=== PATIENT | female | born 1985 | race Hispanic/Latino ===

== ENCOUNTER 2020-09-10 00:45 | Emergency (ER) | payer MEDICAID, SELFPAY ==
--- OUTSIDE RECORDS SUMMARY | 2020-09-10 00:48 | XMS REPORT | Continuity of Care Document ---
:1985 Author Organization [facility] t Address [address] [place] [address] [address] [place] [address] Care Team Providers Name Role Phone Unavailable Unavailable Unavailable Problems This patient has no known problems. Allergies, Adverse Reactions, Alerts This patient has no known allergies or adverse reactions. Medications This patient has no known medications. Procedures This patient has no known procedures. Results This patient has no known results.
--- NOTE | 2020-09-10 02:29 | EDPHYS ---
Physician Documentation [facility] Name: Lory Oreilly Age: 35 yrs Sex: Female : 1985 Arrival Date: 09/10/2020 Time: 00:47 Bed 15 Private MD: ED Physician Alden Carranza HPI: 09/10 01:29 This 35 yrs old Female presents to ER via Ambulatory with complaints of mh7 Foreign Body In Throat. 01:29 The patient or guardian reports the patient has a suspected foreign body, of the throat.mh7 01:29 The reported likely foreign body is unknown. Onset: The symptoms/episode began/occurred mh7 today. Current symptoms: foreign body sensation. Treatment Prior to Arrival: none. States that she ate pizza and felt like something got stuck in her throat. She has been able to eat and swallow since then. Denies any other symptoms.. 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 - Social history:: Smoking status: Patient denies any tobacco usage or history of. ROS: 01:29 Constitutional: Negative for fever, chills, and weight loss, Eyes: Negative for injury, mh7 pain, redness, and discharge, Neck: Negative for injury, pain, and swelling, Cardiovascular: Negative for chest pain, palpitations, and edema, Respiratory: Negative for shortness of breath, cough, wheezing, and pleuritic chest pain, Abdomen/GI: Negative for abdominal pain, nausea, vomiting, diarrhea, and constipation, Back: Negative for injury and pain, : Negative for injury, bleeding, discharge, and swelling, MS/Extremity: Negative for injury and deformity, Skin: Negative for injury, rash, and discoloration, Neuro: Negative for headache, weakness, numbness, tingling, and seizure, Psych: Negative for depression, anxiety, suicide ideation, homicidal ideation, and hallucinations, Allergy/Immunology: Negative for hives, rash, and allergies, Endocrine: Negative for neck swelling, polydipsia, polyuria, polyphagia, and marked weight changes, Hematologic/Lymphatic: Negative for swollen nodes, abnormal bleeding, and unusual bruising. Exam: 01:29 Constitutional: This is a well developed, well nourished patient who is awake, alert, mh7 and in no acute distress. Head/Face: Normocephalic, atraumatic. Eyes: Pupils equal round and reactive to light, extra-ocular motions intact. Lids and lashes normal. Conjunctiva and sclera are non-icteric and not injected. Cornea within normal limits. Periorbital areas with no swelling, redness, or edema. 01:29 Neck: Trachea midline, no thyromegaly or masses palpated, and no cervical lymphadenopathy. Supple, full range of motion without nuchal rigidity, or vertebral point tenderness. No Meningismus. Chest/axilla: Normal chest wall appearance and motion. Nontender with no deformity. No lesions are appreciated. Cardiovascular: Regular rate and rhythm with a normal S1 and S2. No gallops, murmurs, or rubs. Normal PMI, no JVD. No pulse deficits. Respiratory: Lungs have equal breath sounds bilaterally, clear to auscultation and percussion. No rales, rhonchi or wheezes noted. No increased work of breathing, no retractions or nasal flaring. Abdomen/GI: Soft, non-tender, with normal bowel sounds. No distension or tympany. No guarding or rebound. No evidence of tenderness throughout. Back: No spinal tenderness. No costovertebral tenderness. Full range of motion. Skin: Warm, dry with normal turgor. Normal color with no rashes, no lesions, and no evidence of cellulitis. MS/ Extremity: Pulses equal, no cyanosis. Neurovascular intact. Full, normal range of motion. Neuro: Awake and alert, GCS 15, oriented to person, place, time, and situation. Cranial nerves II-XII grossly intact. Motor strength 5/5 in all extremities. Sensory grossly intact. Cerebellar exam normal. Normal gait. Psych: Awake, alert, with orientation to person, place and time. Behavior, mood, and affect are within normal limits. 01:29 ENT: Posterior pharynx: is normal, airway is patent, Dental exam: normal, Voice: is normal. Vital Signs: 01:17 BP 148 / 96; Pulse 80; Resp 16; Pulse Ox 95% on R/A; Weight 122.02 kg; Height 5 ft. 1 iw in. (154.94 cm); Pain 5/10; 02:44 BP 134 / 85; Pulse 78; Resp 16; Pulse Ox 100% on R/A; jm8 01:17 Body Mass Index 50.83 (122.02 kg, 154.94 cm) iw MDM: 02:27 Data reviewed: vital signs, nurses notes, radiologic studies, plain films. Data [facility] interpreted: Pulse oximetry: on room air is 95 %. Interpretation: normal. Counseling: I had a detailed discussion with the patient and/or guardian regarding: the historical points, exam findings, and any diagnostic results supporting the discharge/admit diagnosis, the presence of at least one elevated blood pressure reading (>120/80) during this emergency department visit, radiology results, the need for outpatient follow up, to return to the emergency department if symptoms worsen or persist or if there are any questions or concerns that arise at home. Response to treatment: the patient's symptoms have markedly improved after treatment. 02:[address] [facility] 09/10 01:25 Order name: Neck Soft Tissue XRAY [facility] Administered Medications: No medications were administered Disposition: 09/10/20 02:29 Discharged to Home. Impression: Foreign Body Sensation, Throat. - Condition is Stable. - Discharge Instructions: Swallowed Foreign Body, Adult, [id number]. - Medication Reconciliation Form, Thank You Letter, Antibiotic Education, Prescription Opioid Use form. - Follow up: Private Physician; When: 1 - 2 days; Reason: Worsening of condition, Recheck today's complaints, Continuance of care, Re-evaluation by your physician. - Problem is new. - Symptoms have improved. Signatures: Dispatcher [employer] EDMS Aga Morales RN RN iw Holmes, Maurice, MD MD mh7 Alberto Saha RN RN jm8 Corrections: (The following items were deleted from the chart) 02:45 02:29 09/10/2020 02:29 Discharged to Home. Impression: Foreign Body Sensation, Throat. jm8 Condition is Stable. Forms are Medication Reconciliation Form, Thank You Letter, Antibiotic Education, Prescription Opioid Use. Follow up: Private Physician; When: 1 - 2 days; Reason: Worsening of condition, Recheck today's complaints, Continuance of care, Re-evaluation by your physician. Problem is new. Symptoms have improved. mh7
--- NOTE | 2020-09-10 02:29 | ER ---
Nurse's Notes [facility] Name: Lory Oreilly Age: 35 yrs Sex: Female : 1985 Arrival Date: 09/10/2020 Time: 00:47 Bed 15 Private MD: Diagnosis: Foreign Body Sensation, Throat Presentation: 09/10 01:17 Chief complaint: Patient states: was eating pizza 2 hours ago, felt like something iw sharp is stuck in her throat, feels like a piece of plastic, no vomiting or diff breathing, ate some bread and drank a couple sodas to try to get it down. Coronavirus screen: At this time, the client does not indicate any symptoms associated with coronavirus-19. Ebola Screen: Patient negative for fever greater than or equal to 101.5 degrees Fahrenheit, and additional compatible Ebola Virus Disease symptoms Patient denies exposure to infectious person. Patient denies travel to an Ebola-affected area in the 21 days before illness onset. No symptoms or risks identified at this time. Initial Sepsis Screen: Does the patient meet any 2 criteria? No. Patient's initial sepsis screen is negative. Does the patient have a suspected source of infection? No. Patient's initial sepsis screen is negative. Risk Assessment: Do you want to hurt yourself or someone else? Patient reports no desire to harm self or others. Onset of symptoms was September 10, 2020. 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 - Social history:: Smoking status: Patient denies any tobacco usage or history of. Screenin:23 Abuse screen: Denies threats or abuse. Denies injuries from another. Nutritional jm8 screening: No deficits noted. Tuberculosis screening: No symptoms or risk factors identified. Fall Risk None identified. Assessment: 01:29 General: Appears in no apparent distress. Behavior is calm, cooperative, appropriate jm8 for age, Denies fever, feeling ill, fatigue, chills. Pain: Complains of pain in neck Pain currently is 5 out of 10 on a pain scale. Pain began 2 hours ago. Aggravated by eating a piece of pizza Also complains of no other associated symptoms. Neuro: No deficits noted. Neuro: Level of Consciousness is awake, alert, obeys commands, Oriented to person, place, time. Cardiovascular: No deficits noted. Respiratory: No deficits noted. Respiratory: Airway is patent Respiratory effort is even, unlabored. GI: No deficits noted. : No deficits noted. EENT: Reports difficulty swallowing since 2300 last night and that she feels like something is stuck in her throat. Derm: No deficits noted. Musculoskeletal: No deficits noted. Vital Signs: 01:17 BP 148 / 96; Pulse 80; Resp 16; Pulse Ox 95% on R/A; Weight 122.02 kg; Height 5 ft. 1 iw in. (154.94 cm); Pain 5/10; 02:44 BP 134 / 85; Pulse 78; Resp 16; Pulse Ox 100% on R/A; jm8 01:17 Body Mass Index 50.83 (122.02 kg, 154.94 cm) ED Course: 00:47 Patient arrived in ED. am4 01:15 Alden Carranza MD is Attending Physician. [facility] 01:19 Triage completed. iw 01:20 Arm band placed on. iw 01:23 Patient has correct armband on for positive identification. Bed in low position. Call jm8 light in reach. Side rails up X2. Adult w/ patient. 01:33 No provider procedures requiring assistance completed. Patient did not have IV access [facility] during this emergency room visit. 01:41 Neck Soft Tissue XRAY Sent. jm8 01:42 X-ray(s) taken. jm8 01:57 Neck Soft Tissue XRAY In Process Unspecified. EDMS Administered Medications: No medications were administered Outcome: 02:29 Discharge ordered by . [facility] 02:44 Discharged to home ambulatory. jm8 02:44 Condition: good 02:44 Discharge instructions given to patient, family, Instructed on discharge instructions, follow up and referral plans. Demonstrated understanding of instructions, follow-up care. 02:45 Patient left the ED. jm8 Signatures: Dispatcher [employer] EDMS Aga Morales RN Alden Mora MD MD mh7 Cynthia Whittaker am4 Alberto Saha RN RN jm8
[2020-09-10 02:53] VITALS: BP 134/85; O2SAT 100
--- NOTE | 2020-09-10 19:11 | RAD REPORT ---
EXAM DESCRIPTION: XR Neck Soft Tissue CLINICAL HISTORY: FOREIGN BODY TECHNIQUE: Three views of the soft tissues of the neck were submitted. COMPARISON: None available for comparison FINDINGS: Epiglottis: Unremarkable Trachea: No evidence of steepling of the tracheal air column. Bones: Unremarkable Lung apices: Clear Other: No radiopaque foreign body. IMPRESSION: No radiopaque foreign body. Electronically signed by: Teo Rehman MD 09/10/2020 2:10 AM CDT Due to temporary technical issues with the PACS/Fluency reporting system, reports are being signed by the in house radiologists without review as a courtesy to insure prompt reporting. The interpreting radiologist is fully responsible for the content of the report.
== END 2020-09-10 02:45 | disposition home or self-care (01) ==
LOC: ER 00:45
DX: S10.15XA Superficial foreign body of throat, initial encounter (principal)
CPT/HCPCS: 70360; 99283

== ENCOUNTER 2021-03-28 01:31 | Emergency (ER) | payer SELFPAY ==
[2021-03-28] MEDS ORDERED: MORPHINE 2 MG/ML SYR ONE (01:51)
[2021-03-28] MEDS ORDERED: dexAMETHasone 10 MG/ML VIAL ONE (01:51)
[2021-03-28] MEDS ORDERED: NA CHLORIDE 0.9% 1,000 ML ONE (01:52)
[2021-03-28 02:39] LABS: Urine Blood Negative (Negative); Urine Glucose Negative (Negative); Urine Protein 2+ (Negative); Urine Specific Gravity >=1.030 (1.005-1.030); Urine pH 5.5 (5.0-7.0)
[2021-03-28 02:52] LABS: Urine Bacteria >50 /HPF (<20); Urine Mucus 3+ /HPF (NONE SEEN); Urine RBC <5 /HPF (NONE SEEN)
[2021-03-28 02:58] LABS: Absolute Lymphocytes (CBC) 3.3 K/uL (0.7-4.9); Basophils % 0.5 % (0-1.3); Hematocrit 36.5 % (36.0-45.0); Lymphocytes % 39.6 % (15.3-44.8); MPV 6.6 fL (7.6-11.3); RBC Red Blood Cell Count 4.03 M/uL (3.86-4.86)
[2021-03-28 03:00] LABS: Urine Specific Gravity/Preg >1.030 (1.005-1.030)
[2021-03-28 03:04] LABS: Potassium 3.7 mmol/L (3.5-5.1)
--- NOTE | 2021-03-28 04:12 | ER ---
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 01:50 Coronavirus screen: Vaccine status: Patient reports receiving the 2nd dose of the covid cc4 vaccine. At this time, the client does not indicate any symptoms associated with coronavirus-19. Ebola Screen: Patient negative for fever greater than or equal to 101.5 degrees Fahrenheit, and additional compatible Ebola Virus Disease symptoms No symptoms or risks identified at this time. Initial Sepsis Screen: Does the patient meet any 2 criteria? No. Patient's initial sepsis screen is negative. Does the patient have a suspected source of infection? No. Patient's initial sepsis screen is negative. Risk Assessment: Do you want to hurt yourself or someone else? Patient reports no desire to harm self or others. Onset of symptoms was March 28, 2021 at 00:00. 01:50 Method Of Arrival: EMS: [facility] cc4 01:50 Acuity: ZULEMA 4 cc4 Triage Assessment: 01:30 General: Appears in no apparent distress. Behavior is calm, cooperative, Reports cc4 feeling anxious; reports family having anxiety.. Pain: Complains of pain in head Pain does not radiate. Pain currently is 6 out of 10 on a pain scale. at worst was 10 out of 10 on a pain scale. level that patient reports is acceptable is 0 out of 10 on a pain scale. Quality of pain is described as throbbing, Pain began 1 hour ago. Is continuous. 01:30 EENT: No deficits noted. Eyes clear. Nares are clear Oral mucosa is dry. Neuro: No cc4 deficits noted. Level of Consciousness is awake, alert, obeys commands, Oriented to person, place, time, situation, Cms Expert are equal bilaterally Reports blurred vision with "tingling" left arm that is improving.. 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 - Family history:: not pertinent. - Social history:: Patient/guardian denies using alcohol, street drugs, IV drugs, caffeine, tobacco products, Smoking status: Patient/guardian denies using tobacco products. - Hospitalizations: : No recent hospitalization is reported. - Code Status:: Full code. Screenin:30 Abuse screen: Denies threats or abuse. Nutritional screening: No deficits noted. cc4 Tuberculosis screening: No symptoms or risk factors identified. Fall Risk None identified. Assessment: 01:30 General: See Triage assessment.. cc4 01:53 Reassessment: No changes from previously documented assessment. IV NS hung to # 20 g cc4 saline lock inserted per EMS \\T\\ infusing \\T\\ bolus rate with no s/sx's of infiltration; medications given as ordered. 02:30 Reassessment: Patient appears in no apparent distress at this time. Reports headache cc4 decreasing to 3/10 on pain scale; up \\T\\ ambulatory to restroom with urine specimen collected with negative results \\T\\ dipstick done; UA micro sent to lab. 02:40 Reassessment: Unable to draw blood from IV site for lab specimens; grinder brake lining in \\T\\ cc4 bedside \\T\\ drawing blood for ordered lab, darius. well. 03:00 Reassessment: Reports relief of headache \\T\\ cessation of tingling left hand; SR with no cc4 ectopy noted; VSS. Patient states symptoms have improved. Pain: Denies pain. Vital Signs: 01:30 BP 126 / 97; Pulse 67; Resp 20; Temp 98.0(O); Pulse Ox 100% on R/A; cc4 01:30 Weight 124.74 kg; Height 5 ft. 1 in. (154.94 cm); cc4 02:00 BP 108 / 72; Pulse 63; Resp 18; Pulse Ox 99% on R/A; cc4 02:30 BP 118 / 69; Pulse 53; Resp 20; Pulse Ox 99% on R/A; cc4 03:30 BP 126 / 83; Pulse 58; Resp 20; Pulse Ox 100% on R/A; cc4 04:45 BP 118 / 77; Pulse 64; Resp 20; Temp 97.7; Pulse Ox 100% on R/A; cc4 01:30 Body Mass Index 51.96 (124.74 kg, 154.94 cm) cc4 Reading Coma Score: 03:50 Eye Response: spontaneous(4). Verbal Response: oriented(5). Motor Response: obeys rn commands(6). Total: 15. ED Course: 01:30 Patient has correct armband on for positive identification. hand hose cutter on. Pulse cc4 ox on. NIBP on. 01:30 Arm band placed on right wrist. cc4 01:37 Patient arrived in ED. mw2 01:40 Irena Gordillo, MASOOD is Primary Nurse. cc4 01:44 Eric Delgado MD is Attending Physician. rn 01:45 EKG completed in triage. Results shown to MD. cc4 01:52 Triage completed. cc4 01:58 CT Neck Angio Sent. cc4 01:58 CT Head Angio Sent. cc4 01:59 CT Head Brain wo Cont Sent. cc4 03:13 CT Head Brain wo Cont In Process Unspecified. EDMS 03:13 CT Head Angio In Process Unspecified. EDMS 03:13 CT Neck Angio In Process Unspecified. EDMS 04:41 Urine Culture Sent. cc4 04:45 No provider procedures requiring assistance completed. cc4 04:45 IV discontinued, intact, bleeding controlled, No redness/swelling at site. Pressure cc4 dressing applied. Administered Medications: 01:53 Drug: NS 0.9% 1000 ml Route: IV; Rate: 1000 ml; Site: right antecubital; cc4 02:25 Follow up: IV Status: Completed infusion; IV Intake: 1000ml cc4 01:53 Drug: Decadron - Dexamethasone 10 mg Route: IVP; Site: right antecubital; cc4 04:45 Follow up: Response: No adverse reaction; Pain is decreased cc4 01:53 Drug: morphine 2 mg Route: IVP; Site: right antecubital; cc4 04:45 Follow up: Response: No adverse reaction; Pain is decreased cc4 04:45 Follow up: Urine output 600 ml cc4 Intake: 02:25 IV: 1000ml; Total: 1000ml. cc4 Output: 04:45 Urine: 600ml; Total: 600ml. cc4 Outcome: 04:45 Discharged to home ambulatory. cc4 04:45 Condition: improved 04:45 Discharge instructions given to patient, Instructed on discharge instructions, follow up and referral plans. Demonstrated understanding of instructions, follow-up care. Signatures: Dispatcher [employer] EDMS Eric Delgado MD MD rn [place], MyKena mw2 Irena Gordillo RN RN cc4 Corrections: (The following items were deleted from the chart) 02:49 01:50 Reassessment: No changes from previously documented assessment. IV NS hung to # cc4 20 g saline lock inserted per EMS \\T\\ infusing \\T\\ bolus rate with no s/sx's of infiltration; medications given as ordered. cc4 05:04 04:11 Discharge ordered by . rn cc4 05:04 04:51 Patient left the ED. cc4 cc4
--- NOTE | 2021-03-28 04:12 | EDPHYS ---
Physician Documentation [facility] Name: Lory Oreilly Age: 35 yrs Sex: Female : 1985 Arrival Date: 03/28/2021 Time: 01:37 Bed 20 Private MD: ED Physician Eric Delgado HPI: 03/28 01:46 This 35 yrs old Female presents to ER via Unassigned with complaints of rn Headache, left hand tingling. 01:46 The patient complains of pain to the Diffuse. The patient describes the headache as rn aching. Onset: The symptoms/episode began/occurred 1 hour(s) ago. Associated signs and symptoms: Pertinent positives: paresthesias, Pertinent negatives: altered mental status, fever, neck stiffness, vision changes, vision loss, vomiting, weakness, vertigo. Severity of symptoms: At its worst the pain was moderate, in the emergency department the pain has improved. The symptoms are alleviated by nothing. the symptoms are aggravated by nothing. The patient has not experienced similar symptoms in the past. The patient has not recently seen a physician. Patient reports 1 hour prior to arrival began with headache, hurt all over, denies injury, states felt blurred vision of both eyes. Was laying in her bed on her phone researching what it could be when noticed that her left arm, which is the arm she was laying on, felt cold and numb. Reports got anxious and began to breathe fast with shortness of breath, lightheaded, blurred vision, tingling all over and when outside to try to feel better. At that time she called 911. Currently states that headache is still present but the tingling to the left arm is only to left hand currently. Denies any weakness or involvement of the face or left leg. Patient does not have any medical problems.. 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 - Family history:: not pertinent. - Social history:: Patient/guardian denies using alcohol, street drugs, IV drugs, caffeine, tobacco products, Smoking status: Patient/guardian denies using tobacco products. - Hospitalizations: : No recent hospitalization is reported. - Code Status:: Full code. ROS: 01:46 Constitutional: Negative for fever, chills, and weight loss, Eyes: Negative for injury, rn pain, redness, and discharge, ENT: Negative for injury, pain, and discharge, Neck: Negative for injury, pain, and swelling, Cardiovascular: Negative for chest pain, palpitations, and edema, Respiratory: Negative for shortness of breath, cough, wheezing, and pleuritic chest pain, Abdomen/GI: Negative for abdominal pain, nausea, vomiting, diarrhea, and constipation, Back: Negative for injury and pain, : Negative for injury, bleeding, discharge, and swelling, MS/Extremity: Negative for injury and deformity, Skin: Negative for injury, rash, and discoloration, Neuro: Negative for weakness, and seizure. Exam: 01:46 Constitutional: This is a well developed, well nourished patient who is awake, alert, rn and in no acute distress. Head/Face: Normocephalic, atraumatic. Eyes: Periorbital areas with no swelling, redness, or edema. Neck: Trachea midline, no thyromegaly or masses palpated, and no cervical lymphadenopathy. Supple, full range of motion without nuchal rigidity, or vertebral point tenderness. No Meningismus. Cardiovascular: Regular rate and rhythm. No pulse deficits. Respiratory: No increased work of breathing, no retractions or nasal flaring. Abdomen/GI: Soft, non-tender Skin: Warm, dry MS/ Extremity: Pulses equal, no cyanosis. Neurovascular intact. Full, normal range of motion. Equal circumference. Neuro: Awake and alert, GCS 15, oriented to person, place, time, and situation. Cranial nerves II-XII grossly intact. Motor strength 5/5 in all extremities. Sensory grossly intact throughout, except for paresthesia to the left hand. Cerebellar exam normal. 02:31 ECG was reviewed by the Attending Physician. rn Vital Signs: 01:30 BP 126 / 97; Pulse 67; Resp 20; Temp 98.0(O); Pulse Ox 100% on R/A; cc4 01:30 Weight 124.74 kg; Height 5 ft. 1 in. (154.94 cm); cc4 02:00 BP 108 / 72; Pulse 63; Resp 18; Pulse Ox 99% on R/A; cc4 02:30 BP 118 / 69; Pulse 53; Resp 20; Pulse Ox 99% on R/A; cc4 03:30 BP 126 / 83; Pulse 58; Resp 20; Pulse Ox 100% on R/A; cc4 04:45 BP 118 / 77; Pulse 64; Resp 20; Temp 97.7; Pulse Ox 100% on R/A; cc4 01:30 Body Mass Index 51.96 (124.74 kg, 154.94 cm) cc4 [place] Coma Score: 03:50 Eye Response: spontaneous(4). Verbal Response: oriented(5). Motor Response: obeys rn commands(6). Total: 15. MDM: 01:44 Patient medically screened. rn 03:50 Differential diagnosis: hypertensive headache, intracerebral hemorrhage, migraine, rn subarachnoid bleed, tension headache, vasomotor headache, Caffeine overdose, hyperventilation episode. Data reviewed: vital signs, nurses notes, lab test result(s). ED course: Patient states feels much better, headache resolved and tingling resolved. States now left hand just feels cold but not to the touch. She is now recalling and attributes her symptoms to too much caffeine today. States normally does not have caffeine but today had 4 separate coffees as well as soda. States last coffee was espresso with 3 shots at [address] head as well as angios but if negative will DC home.. 04:07 Counseling: I had a detailed discussion with the patient and/or guardian regarding: the rn historical points, exam findings, and any diagnostic results supporting the discharge/admit diagnosis, lab results, radiology results, the need for outpatient follow up, to return to the emergency department if symptoms worsen or persist or if there are any questions or concerns that arise at home. Response to treatment: the patient's symptoms have markedly improved after treatment, and as a result, I will discharge patient. Special discussion: I discussed with the patient/guardian in detail that at this point there is no indication for admission to the hospital. It is understood, however, that if the symptoms persist or worsen the patient needs to return immediately for re-evaluation. 03/28 01:45 Order name: CBC with Diff; Complete Time: 03:43 rn 03/28 01:45 Order name: Basic Metabolic Panel; Complete Time: 03:43 rn 03/28 01:45 Order name: Urine Microscopic Only; Complete Time: 03:43 rn 03/28 02:39 Order name: Urine Dipstick-Ancillary; Complete Time: 03:43 EDMS 03/28 02:52 Order name: Urine --Ancillary (enter results); Complete Time: 03:43 mw2 03/28 02:54 Order name: Urine Culture EDMS 03/28 01:45 Order name: CT Head Brain wo Cont rn 03/28 01:45 Order name: EKG; Complete Time: 01:45 rn 03/28 01:45 Order name: CT Head Angio rn 03/28 01:45 Order name: CT Neck Angio rn 03/28 03:25 Order name: CREATININE WHOLE BLOOD; Complete Time: 03:43 EDMS 03/28 01:45 Order name: IV Start; Complete Time: 01:59 rn 03/28 01:45 Order name: Urine Dipstick-Ancillary (obtain specimen) rn 03/28 01:45 Order name: Urine Test (obtain specimen) rn 03/28 01:45 Order name: EKG - Nurse/Tech; Complete Time: 02:26 rn EC:31 Rate is 64 beats/min. Rhythm is regular. QRS [place] is Normal. LA interval is normal. QRS rn interval is normal. QT interval is normal. No Q waves. T waves are Normal. No ST changes noted. Clinical impression: Normal ECG. Interpreted by me. Reviewed by me. Administered Medications: 01:53 Drug: NS 0.9% 1000 ml Route: IV; Rate: 1000 ml; Site: right antecubital; cc4 02:25 Follow up: IV Status: Completed infusion; IV Intake: 1000ml cc4 01:53 Drug: Decadron - Dexamethasone 10 mg Route: IVP; Site: right antecubital; cc4 04:45 Follow up: Response: No adverse reaction; Pain is decreased cc4 01:53 Drug: morphine 2 mg Route: IVP; Site: right antecubital; cc4 04:45 Follow up: Response: No adverse reaction; Pain is decreased cc4 04:45 Follow up: Urine output 600 ml cc4 Disposition Summary: 03/28/21 04:11 Discharge Ordered Location: Home rn Problem: new rn Symptoms: have improved rn Condition: Stable rn Diagnosis - Headache rn - Paresthesia of skin rn Followup: rn - With: Private Physician - When: As needed - Reason: Recheck today's complaints, Re-evaluation by your physician Discharge Instructions: - Discharge Summary Sheet rn - General Headache Without Cause rn - Paresthesia rn Forms: - Medication Reconciliation Form rn - Thank You Letter rn - Antibiotic editor trade journal - Prescription Opioid Use rn Signatures: Dispatcher [employer] Eric Thorpe MD MD rn Cooper, Christie, RN RN cc4
[2021-03-28 04:58] VITALS: O2SAT 99
[2021-03-28 04:59] VITALS: BP 118/69
--- NOTE | 2021-03-28 12:22 | RAD REPORT ---
EXAM DESCRIPTION: CTA Neck with Contrast 03/28/2021 at 3: 08 AM CLINICAL HISTORY: Headache, left arm tingling COMPARISON: None. TECHNIQUE: Neck CTA axial images acquired after IV contrast. Coronal and sagittal CTA MIPs and MPRs created. 3D volume rendered images created. Exam performed according to departmental dose-optimizatio n program which includes automated exposure control, adjustment of mA and/or kV according to patient size, and/or use of iterative reconstruction technique. FINDINGS: Aortic arch not imaged. Both vertebral arteries unremarkable. Both carotid arteries unremarkable. No significant carotid artery stenosis (by NASCET criteria). Multiple large dental cavities. Multiple, nonspecific, shotty, bilateral, cervical lymph nodes. These may be reactive or inflammatory. IMPRESSION: 1. Unremarkable CTA neck. 2. Multiple large dental cavities. 3. Multiple, nonspecific, shotty, bilateral, cervical lymph nodes. These may be reactive or inflammatory. Electronically signed by: Samir Botello MD 03/28/2021 4:01 AM RIB BUILDER Due to temporary technical issues with the PACS/Fluency reporting system, reports are being signed by the in house radiologist without review as a courtesy to ensure prompt reporting. The interpreting r adiologist is fully responsible for the content of the report.
--- NOTE | 2021-03-28 12:23 | RAD REPORT ---
EXAM DESCRIPTION: CTA Head with Contrast 03/28/2021 at 3: 08 AM CLINICAL HISTORY: Left arm tingling; Headache COMPARISON: None. TECHNIQUE: Head and neck CTA axial images acquired after IV contrast. Coronal and sagittal CTA MIPs and MPRs created. 3D volume rendered images created. Exam performed according to departmental dose-op timization program which includes automated exposure control, adjustment of mA and/or kV according to patient size, and/or use of iterative reconstruction technique. FINDINGS: Both intracranial vertebral, basilar, and both posterior cerebral arteries unremarkable. Both intracranial internal carotid, both middle cerebral, anterior communicating, and both anterior c erebral arteries unremarkable. No evidence of large intracranial arterial occlusion, aneurysm, or AVM. IMPRESSION: Unremarkable CTA head with contrast. If there remains strong clinical suspicion of acute ischemic infarct, then MR brain/head recommended (if there are no contraindications). Electronically signed by: Samir Botello MD 03/28/2021 3:55 AM DIRECTOR SPEECH Due to temporary technical issues with the PACS/Fluency reporting system, reports are being signed by the in house radiologist without review as a courtesy to ensure prompt reporting. The interpreting r adiologist is fully responsible for the content of the report.
--- NOTE | 2021-03-28 12:25 | RAD REPORT ---
EXAM DESCRIPTION: CT Head/Brain Without Contrast 03/28/2021 at 2: 54 AM CLINICAL HISTORY: Left arm tingling; Headache COMPARISON: None. TECHNIQUE: Head/brain axial images acquired without contrast. Coronal and sagittal reformats created . Exam performed according to departmental dose-optimization program which includes automated exposur e control, adjustment of mA and/or kV according to patient size, and/or use of iterative reconstructi on technique. FINDINGS: No midline shift, mass effect, intracranial hemorrhage, or hydrocephalus. Brain parenchyma unremarkable. Paranasal sinuses clear. Mastoid air cells clear. No skull fracture or significant skull lesion. IMPRESSION: Unremarkable CT head/brain without contrast. If there remains strong clinical suspicion of acute ischemic infarct, then MR brain/head recommended (if there are no contraindications). Electronically signed by: Samir Botello MD 03/28/2021 3:46 AM CHIEF NURSE ANESTHETIST Due to temporary technical issues with the PACS/Fluency reporting system, reports are being signed by the in house radiologist without review as a courtesy to ensure prompt reporting. The interpreting r adiologist is fully responsible for the content of the report.
--- NOTE | 2021-03-29 11:24 | EKG ---
Test Date: 2021-03-28 Test Time: 02:04:13 Pricing Strategist: PHU MEASUREMENT RESULTS: Intervals: Rate: 64 VT: 180 QRSD: 90 QT: 450 QTc: 464 [place]: P: 24 VT: 180 QRS: 36 T: 18 INTERPRETIVE STATEMENTS: Normal sinus rhythm Normal ECG Compared to ECG 12/28/2001 13:29:00 Sinus arrhythmia no longer present Electronically Signed On 03-29-21 11:20:39 HAND WORKER by Maurice Rebollar
--- OUTSIDE RECORDS SUMMARY | 2021-04-01 17:36 | XMS REPORT | Continuity of Care Document ---
:1985 Author Organization [facility] Address [address] [place] [address] Dr. Patrick [address] [place] [id number] Care Team Providers Name Role Phone Unavailable Unavailable Unavailable Problems This patient has no known problems. Allergies, Adverse Reactions, Alerts This patient has no known allergies or adverse reactions. Medications This patient has no known medications. Procedures This patient has no known procedures. Results This patient has no known results.
== END 2021-03-28 04:51 | disposition home or self-care (01) ==
LOC: ER 01:31
DX: R51.9 Headache, unspecified (principal); R20.2 Paresthesia of skin
CPT/HCPCS: 36415; 70450; 70496; 70498; 80048; 81003; 81015; 81025; 82565; 85025; 87086; 87088; 93005; 96361; 96374; 96375; 99284; J1100; J2270; J7030; Q9967

== ENCOUNTER 2025-02-23 18:31 | Emergency (ER) | payer SELFPAY ==
--- OUTSIDE RECORDS SUMMARY | 2025-02-23 18:34 | XMS REPORT | Continuity of Care Document ---
Author Name Unknown Address [address] [place] [address] Organization [facility] Address [address] [place] [address] Care Team Providers Care Senior Sales Operations Manager Name Role Phone PCP, PATIENT DOES NOT HAVE A Primary Care Physic kim Unavailable VIVIANA LONG Attending Clinician Unavailable TAB HOLCOMB Attending Clinician UnavailMAT Hernandez Attending Clinician Unavailab trent Starr [facility] Attending [facility]ician [phone] BRENDEN LEPE Attending Clinician Unavailable Nurse, Adc Pob Immunization Attending Clinician Unavailable Dereje Ozuna DO Attending Clinician [phone] DEREJE OZUNA Attending Clinician Unavail able Payers Payer Name Policy Type Policy Number Effective Date Expirati on Date Source [facility] [id number] 2025 00:00:00 Problems Condition Name Condition Details Condition Category Status Onset Date Resolution Date Last Treatment Date Treating Clinician Comments Source Hydrops of gallbladde r Hydrops of gallbladde r Disease Active 07-01 00:00: 00 [facility] Fatty liver Fatty liver Disease Active 07-01 00:00: 00 [facility] Left sided abdominal pain Left sided abdominal pain Disease Active 06-30 00:00: 00 [facility] Morbid obesity Morbid obesity Disease Active 06-30 00:00: 00 [facility] Abnormal LFTs (liver function tests) Abnormal LFTs (liver function tests) Disease Active 06-19 00:00: 00 [facility] Cholelithi asis Cholelithi asis Disease Active [facility] Allergies, Adverse Reactions, Alerts Allergy Name Allergy Type Status Severity Reaction(s) Onset Date Inactive Date Treating Clinician Comments Source NO KNOWN ALLERGIE S Drug Class Active [facility] Social History Social Habit Start Date Stop Date Quantity Comments Source [facility] ASSERTION Possible [facility] Alcoholic beverage intake 2025-02-03 00:00:00 2025-02-03 00:00:00 .29 /d [facility] History of Social function 2025-01-29 00:00:00 2025-01-29 00:00:00 [facility] Alcohol intake 2017-07-02 00:00:00 2017-07-02 00:00:00 .29 /d [facility] Tobacco use and exposure 2017-06-17 00:00:00 2017-06-17 00:00:00 Smokeless tobacco non-user [facility] Sex assigned at 1985 00:00:00 1985 00:00:00 [facility] Smoking Status Start Date Stop Date Source Never smoked tobacco [facility] Medications Ordered Medication Name Filled Medication Name Start Date Stop Date Current Medication? Ordering Clinician Indication Dosage Frequency Signature (SIG) Comments Components Source No known medications 07-07 21:27: 39 No [facility] Immunizations Ordered Immunization Name Filled Immunization Name Date Status Comments Source SARS-COV-2 COVID-19 PFIZER VACCINE 2021-05-23 00:00:00 Completed [facility] SARS-COV-2 COVID-19 PFIZER VACCINE 2021-05-23 00:00:00 Completed [facility] SARS-COV-2 COVID-19 PFIZER VACCINE 2021-05-23 00:00:00 Completed [facility] Vital Signs Vital Name Observation Time Observation Value Comments S vaibhav Systolic blood pressure 2025-01-29 15:50:00 120 mm[Hg] [facility] Diastolic blood pressure 2025-01-29 15:50:00 81 mm[Hg] [facility] Heart rate 2025-01-29 15:50:00 88 /min [facility] Body temperature 2025-01-29 15:50:00 36.61 Mi [facility] Respiratory rate 2025-01-29 15:50:00 20 /min [facility] Body height 2025-01-29 15:50:00 154.9 cm [facility] Body weight 2025-01-29 15:50:00 123.787 kg [facility] BMI 2025-01-29 15:50:00 51.56 kg/m2 [facility] Procedures Procedure Date / Time Performed Performing Clinician Source POCT TEST 2025-01-29 19:13:00 Viviana Long [facility] THYROID STIMULATING HORMONE 2025-01-29 16:38:00 Viviana Long [facility] TOTAL BETA HCG ASSAY 2025-01-29 16:38:00 Alan Long [facility] CBC WITH DIFF 2025-01-29 16:38:00 Viviana Long [facility] SARS-COV-2 COVID-19 VACCINE,0.3ML,IM (PFIZER) 2021-05-23 16:26:45 Doctor Unassigned, [place] [facility] Encounters Start Date/Time End Date/Time Encounter Type Admission Type Attending Clinicians Care Facility Care Department Encounter ID Source 2025-01-29 10:30:00 2025-01-29 11:35:18 Office Visit VIVIANA RDZ [facility] POLICE OFFICER CRIME PREVENTION [facility] & [facility] ..[id number] [facility] 2022-12-25 00:00:00 2022-12-25 00:00:00 Telephone Colleen Starr [facility] POLICE OFFICER CRIME PREVENTION [facility] ..[id number] [facility] 2022-03-01 15:00:00 2022-03-01 15:00:00 Outpatient R SHERLEYBRENDEN VALERIO [facility] [id number] [facility] 2021-05-23 10:40:00 2021-05-23 10:40:00 Imm/Inj Visit Nurse, Juan Ramon Grayson Immunizatio vahid Ozuna Dereje Shade [facility] [id number] [facility] 2021-05-23 10:40:00 2021-05-23 10:23:[address] [facility] [id number] [facility] 2021-05-15 16:45:00 2021-05-15 16:45:[address] [facility] [id number] [facility] Results Test Description Test Time Test Comments Results Result Co mments Source [facility] Notes Date/Time Note Provider Source 2022-12-25 09:42:57 Formatting of this n ote might be different from the original. Pt was called as she missed her NOB apt on today. Pt states that she thought the apt was for tomorrow. I rescheduled the pt for 12/27/2022. She states this is when her insurance will be effective. I advised her to bring her insurance information and arrive by 8 am to sign discloser's. Rosalind Jane [facility]
[2025-02-23] MEDS ORDERED: MECLIZINE HCL 12.5 MG TAB ONE (19:11)
[2025-02-23] MEDS ORDERED: ACETAMINOPHEN 500 MG TAB ONE (19:29)
[2025-02-23 19:35] LABS: Absolute Lymphocytes (CBC) 1.5 K/uL (0.7-4.9); Hematocrit 37.0 % (36.0-45.0); Hemoglobin 13.2 g/dL (12.0-15.0); MCH 31.8 pg (27.0-35.0); MCHC 35.8 g/dL (32.0-36.0); MCV 89.0 fL (80-100); MPV 6.5 fL (7.6-11.3); Nucleated RBC Absolute Count 0.0 (0-0); Nucleated Red Blood Cells % 0.1 % (0-0); RBC Red Blood Cell Count 4.16 M/uL (3.86-4.86); White Blood Count 7.30 thou/uL (4.3-10.9)
[2025-02-23 19:40] LABS: PT Prothrombin Time 12.7 SECONDS (10-13.0); Protime INR 1.13
--- NOTE | 2025-02-23 19:45 | RAD REPORT ---
EXAM: Chest Single View HISTORY: 39 years Female dizziness COMPARISON: No prior exams FINDINGS: LUNGS/PLEURA: The lungs are clear. No pleural effusions or pneumothorax. No pulmonary edema. CARDIAC/MEDIASTINUM: The cardiac silhouette is within normal limits. UPPER ABDOMEN: No significant abnormality. BONES: No acute abnormality. LINES/TUBES/OTHER: N/A IMPRESSION: No evidence of acute cardiopulmonary disease.
[2025-02-23 20:01] LABS: ALT/SGPT 26 U/L (13-56); AST/SGOT 13 U/L (15-37); Albumin 3.3 g/dL (3.4-5.0); Albumin/Globulin Ratio 0.8 (1.1-1.8); Alkaline Phosphatase 71 U/L (45-117); Anion Gap 10.1 mEq/L (5.0-15.0); BUN Blood Urea Nitrogen 8 mg/dL (7-18); Globulin 4.0 g/dL (2.3-3.5); Glucose Level 115 mg/dL (74-106); Magnesium 2.0 mg/dL (1.6-2.4); NT PRO-BNP 20 pg/mL (<125); Potassium 3.1 mEq/L (3.5-5.1); Thyroid Stimulating Hormone 1.750 uIU/mL (0.358-3.740); Troponin High Sensitivity 4.3 pg/mL (<58.9)
[2025-02-23 20:03] LABS: Bilirubin Indirect, Calculated 0.4 mg/dL (0.2-0.8)
--- NOTE | 2025-02-23 20:18 | RAD REPORT ---
EXAMINATION: Head Brain Wo Cont CLINICAL INDICATION: Female, 39 years old.DIZZINESS TECHNIQUE: Axial CT images from the skull base to the vertex without intravenous contrast. Coronal an d sagittal reformatted images were created from the data set. One or more of the following dose reduction techniques were used: Automated exposure control, adjustment of the mA and/or kV according to patient size, and/or iterative reconstruction. Unless otherwise specified, incidental findings do not require dedicated imaging follow-up. [id number]. COMPARISON: 03/28/2021 FINDINGS: INTRACRANIAL: No acute intracranial hemorrhage. No acute large vascular territory infarct. No hydro cephalus. No mass effect or midline shift. No significant white matter disease. VASCULATURE: No visualized abnormalities in the arteries or dural venous sinuses. SCALP/SKULL: No calvarial fracture identified. No acute soft tissue abnormality. SINUSES: The visualized paranasal sinuses are mostly clear. No significant mastoid fluid. IMPRESSION: No acute intracranial abnormality.
--- NOTE | 2025-02-23 20:23 | EDPHYS ---
Physician Documentation [facility] Name: Lory Oreilly Age: 39 yrs Sex: Female : 1985 Arrival Date: 02/23/2025 Time: 18:31 Bed 3 Private MD: ED Physician Vin Timmons HPI: 02/23 18:44 This 39 yrs old Female presents to ER via EMS with complaints of Dizziness. sb4 18:44 Patient reports dizziness since last night. States that it is worse when getting from sb4 sitting up sitting down to standing up when going from sitting to standing but is still there at rest. States that she went to work today but ended up leaving early because she was feeling so poorly. States that she went home and tried to take a nap to see if it would go away but woke up this still feeling very dizzy and weak. She called EMS. EMS noted her her blood pressure to be orthostatic positive. Patient denies any diagnosed medical history. States that she was recently started on GLP-1 about 3 weeks ago for weight loss and has not been eating as much, but denies any nausea, vomiting, or diarrhea. 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 - Infectious Disease History:: Denies. - Social history:: Smoking status: unknown. ROS: 18:44 Constitutional: Negative for fever, chills, and weight loss, sb4 18:44 Neuro: Positive for dizziness, headache, 18:44 All other systems are negative, Exam: 18:44 Head/Face: Normocephalic, atraumatic. Eyes: Extra-ocular motions intact. Periorbital sb4 areas with no swelling, redness, or edema. ENT: Mucous membranes moist. Cardiovascular: Regular rate and rhythm with a normal S1 and S2. Respiratory: No increased work of breathing, no retractions or nasal flaring. Abdomen/GI: Soft, non-tender, no distension. Skin: Warm, dry with normal turgor. Normal color with no rashes, no lesions, and no evidence of cellulitis. 18:44 Constitutional: The patient appears in no acute distress, alert, awake, obese, Vital Signs: 18:34 BP 112 / 65; Pulse 75; Resp 16; Temp 98; Pulse Ox 99% ; bp 19:12 BP 123 / 76 LA Supine; Pulse 70 LA; kb4 19:15 BP 132 / 81 LA Sitting; Pulse 70; kb4 19:17 BP 130 / 79 LA Standing; Pulse 71; kb4 20:30 BP 121 / 68; Pulse 61; Resp 18; Temp 98.6; Pulse Ox 99% on R/A; kb4 MDM: 18:34 Medical Screening Exam initiated sb4 18:46 Differential diagnosis: head injury, hypovolemia, near-syncope, , vertigo. sb4 20:23 Data reviewed: vital signs, nurses notes, EMS record, lab test result(s), EKG, sb4 radiologic studies, and as a result, I will discharge patient. Counseling: I had a detailed discussion with the patient and/or guardian regarding the historical points, exam findings, and any diagnostic results supporting the discharge/admit diagnosis, lab results, radiology results, the need for outpatient follow up, for definitive care, to return to the emergency department if symptoms worsen or persist or if there are any questions or concerns that arise at home. 02/23 18:44 Order name: Basic Metabolic Panel; Complete Time: 20:06 sb4 02/23 18:44 Order name: CBC with Diff; Complete Time: 19:53 sb4 02/23 18:44 Order name: LFT's; Complete Time: 20:06 sb4 02/23 18:44 Order name: Magnesium; Complete Time: 20:06 sb4 02/23 18:44 Order name: NT PRO-BNP; Complete Time: 20:06 sb4 02/23 18:44 Order name: PT-INR; Complete Time: 19:41 sb4 02/23 18:44 Order name: Troponin HS; Complete Time: 20:06 sb4 02/23 18:44 Order name: Test, Serum; Complete Time: 19:53 sb4 02/23 18:44 Order name: TSH; Complete Time: 20:06 sb4 02/23 18:44 Order name: XRAY Chest (1 view); Complete Time: 19:47 sb4 02/23 19:33 Order name: Head Brain Wo Cont CT; Complete Time: 20:18 sb4 02/23 18:44 Order name: Cardiac monitoring; Complete Time: 19:23 sb4 02/23 18:44 Order name: EKG - Nurse/Tech; Complete Time: 19:23 sb4 02/23 18:44 Order name: IV Saline Lock; Complete Time: : sb4 02/23 18:44 Order name: Labs collected and sent; Complete Time: : sb4 02/23 18:44 Order name: O2 Per Protocol; Complete Time: 19: sb4 02/23 18:44 Order name: O2 Sat Monitoring; Complete Time: : sb4 02/23 18:44 Order name: Orthostatics; Complete Time: 19: sb4 EC: Rate is 61 beats/min. Rhythm is regular, Normal Sinus Rhythm. UT interval is normal at sb4 162 msec. QRS interval is normal at 98 msec. QT interval is normal. No Q waves. T waves are Normal. No ST changes noted. Clinical impression: Normal ECG. Interpreted by me. Reviewed by me. Administered Medications: 19:23 Drug: Meclizine PO 50 mg PO once Route: PO; kb4 21:10 Follow up: Response: No adverse reaction kb4 19:32 Drug: Acetaminophen PO 1000 mg PO once Route: PO; kd3 21:10 Follow up: Response: No adverse reaction kb4 20:30 Drug: Potassium PO Effervescent Tablet 50 mEq PO once; dissolve in 4 ounces of water or kb4 juice Route: PO; 21:10 Follow up: Response: No adverse reaction kb4 Disposition Summary: 02/23/25 20:23 Discharge Ordered Notes: Location: Home sb4 Problem: new sb4 Symptoms: have improved sb4 Condition: Stable sb4 Diagnosis - Dizziness and giddiness sb4 Followup: sb4 - With: Private Physician - When: As needed - Reason: Recheck today's complaints, Re-evaluation by your physician Discharge Instructions: - Discharge Summary Sheet sb4 - Hypokalemia sb4 - Dizziness, [id number] sb4 Forms: - Work release form sb4 - Patient Portal Instructions sb4 - Leadership Thank You Letter sb4 Prescriptions: - Meclizine 25 mg Oral Tablet - take 1 tablet ORAL route every 8 hours As needed; 30 tablet; Refills: 0, sb4 Product Selection Permitted Signatures: Dispatcher [employer] Jhonny Swain RN RN Annie Ware RN RN kd3 Cheyenne Lerma PA-C PAEugeniaC sb4 Clarissa Coronado, RN RN kb4 Corrections: (The following items were deleted from the chart) 18:44 18:44 Chest Single View+[id number] ordered. EDMS EDMS
--- NOTE | 2025-02-23 20:23 | ER ---
Nurse's Notes [facility] Name: Lory Oreilly Age: 39 yrs Sex: Female : 1985 Arrival Date: 02/23/2025 Time: 18:31 Bed 3 Private MD: Diagnosis: Dizziness and giddiness Presentation: 02/23 18:34 Chief complaint: EMS states: DIZZINESS. Coronavirus screen: At this time, the client bp does not indicate any symptoms associated with coronavirus-19. Ebola Screen: No symptoms or risks identified at this time. Initial Sepsis Screen: Does the patient meet any 2 criteria? No. Patient's initial sepsis screen is negative. Does the patient have a suspected source of infection? No. Patient's initial sepsis screen is negative. Risk Assessment: Do you want to hurt yourself or someone else? Patient reports no desire to harm self or others. Onset of symptoms was February 23, 2025. Care prior to arrival: IV initiated. 20 GA, in the right antecubital area, Glucose check: 121. 18:34 Method Of Arrival: EMS: [facility] bp 18:34 Acuity: ZULEMA 3 bp Triage Assessment: 18:35 General: Appears in no apparent distress. Behavior is cooperative, appropriate for age, bp anxious. Pain: Denies pain. EENT: No deficits noted. Neuro: Reports dizziness. Cardiovascular: Rhythm is sinus rhythm. Respiratory: No deficits noted. GI: No signs and/or symptoms were reported involving the gastrointestinal system. : No signs and/or symptoms were reported regarding the genitourinary system. Derm: No deficits noted. Musculoskeletal: No deficits noted. 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 - Infectious Disease History:: Denies. - Social history:: Smoking status: unknown. Screenin:36 [facility] ED Fall Risk Assessment (Adult) History of falling in the last 3 months, bp including since admission No falls in past 3 months (0 pts) Confusion or Disorientation No (0 pts) Intoxicated or Sedated No (0 pts) Impaired Gait No (0 pts) Mobility Assist Device Used No (0 pt) Altered Elimination No (0 pt) Score/Fall Risk Level 0 - 2 = Low Risk Oriented to surroundings. Abuse screen: Denies threats or abuse. Denies injuries from another. Nutritional screening: No deficits noted. Tuberculosis screening: No symptoms or risk factors identified. Assessment: 18:36 General: SEE TRIAGE NOTE. bp 20:30 Reassessment: Patient appears in no apparent distress at this time. Patient and/or kb4 family updated on plan of care and expected duration. Pain level reassessed. Patient is alert, oriented x 3, equal unlabored respirations, skin warm/dry/pink. Patient states feeling better. Vital Signs: 18:34 BP 112 / 65; Pulse 75; Resp 16; Temp 98; Pulse Ox 99% ; bp 19:12 BP 123 / 76 LA Supine; Pulse 70 LA; kb4 19:15 BP 132 / 81 LA Sitting; Pulse 70; kb4 19:17 BP 130 / 79 LA Standing; Pulse 71; kb4 20:30 BP 121 / 68; Pulse 61; Resp 18; Temp 98.6; Pulse Ox 99% on R/A; kb4 ED Course: 18:34 Patient arrived in ED. bp 18:34 Cheyenne Lerma PA-C is PHCP. sb4 18:34 Vin Timmons MD is Attending Physician. sb4 18:35 Triage completed. bp 18:35 Arm band placed on. bp 18:36 Patient has correct armband on for positive identification. bp 18:36 Maintain EMS IV. Dressing intact. Good blood return noted. Site clean \T\ dry. Gauge \T\ bp site: 20 RAC. Flushed with 10 mL NS. 18:38 Jhonny Montoya, RN is Primary Nurse. bp 19:40 XRAY Chest (1 view) In Process Unspecified. EDMS 20:00 Head Brain Wo Cont CT In Process Unspecified. EDMS 20:40 Provided Education on: d/c instructions . kb4 20:40 No provider procedures requiring assistance completed. kb4 20:40 IV discontinued, intact, bleeding controlled, No redness/swelling at site. Pressure kb4 dressing applied. Administered Medications: 19:23 Drug: Meclizine PO 50 mg PO once Route: PO; kb4 21:10 Follow up: Response: No adverse reaction kb4 19:32 Drug: Acetaminophen PO 1000 mg PO once Route: PO; kd3 21:10 Follow up: Response: No adverse reaction kb4 20:30 Drug: Potassium PO Effervescent Tablet 50 mEq PO once; dissolve in 4 ounces of water or kb4 juice Route: PO; 21:10 Follow up: Response: No adverse reaction kb4 Medication: 20:40 VIS not applicable for this client. kb4 Outcome: 20:23 Discharge ordered by . sb4 20:40 Discharged to home ambulatory, kb4 20:40 Condition: good 20:40 Discharge instructions given to patient, Instructed on discharge instructions, follow up and referral plans. medication usage, Demonstrated understanding of instructions, follow-up care, medications, Prescriptions given X 1, 21:12 Patient left the ED. kb4 Signatures: Dispatcher [employer] EDMS Jhonny Montoya RN RN bp Annie Levin RN RN kd3 Cheyenne Lerma, PAEugeniaC PAEugeniaC sb4 Clarissa Coronado, RN RN kb4 Corrections: (The following items were deleted from the chart) 21:07 21:05 Potassium PO Effervescent Tablet 50 mEq PO kb4 kb4 21:11 21:10 No provider procedures requiring assistance completed. kb4 kb4 21:11 21:10 IV discontinued, intact, bleeding controlled, No redness/swelling at site. kb4 Pressure dressing applied, kb4 21:12 21:11 Provided Education on: d/c instructions . kb4 kb4
[2025-02-23] MEDS ORDERED: POTASSIUM 25 MEQ EFFERV TAB ONE (20:31)
[2025-02-23 21:31] VITALS: O2SAT 99
[2025-02-23 21:37] VITALS: BP 121/68; TEMP 98.6
== END 2025-02-23 21:12 | disposition home or self-care (01) ==
LOC: ER 18:31
DX: R42 Dizziness and giddiness (principal); R51.9 Headache, unspecified
CPT/HCPCS: 36415; 70450; 71045; 80048; 80076; 83735; 83880; 84443; 84484; 84703; 85025; 85610; 93005; 99284; J8597